=== PATIENT | male | born 1970 | race Two or more races ===

== ENCOUNTER 2021-04-01 16:15 | Emergency (ER) | payer OTHER ==
[~2021-04-01] VITALS: Ht 182.9 cm; Wt 77.1 kg
[2021-04-01] MEDS ORDERED: PRILOSEC OTC20 MG (16:29)
[2021-04-02] MEDS ORDERED: PROAIR HFA8.5 GM IH (16:36)
[2021-04-02] MEDS ORDERED: LEVOFLOXACIN750 MG PO (16:36)
[2021-04-02] MEDS ORDERED: VITAMIN C500 M1 PO (16:36)
== END 2021-04-02 17:17 | disposition home or self-care (01) ==
LOC: ER 16:15
DX: U07.1 COVID-19 (principal); J12.82 Pneumonia due to coronavirus disease 2019